=== PATIENT | female | born 1975 | race African-American/Black ===

== ENCOUNTER 2018-02-14 09:37 | Emergency (ER) | payer OTHER ==
--- NOTE | 2018-02-14 09:54 | ER Document Report ---
ED Medical Screen (RME) - General Chief Complaint: Shortness Of Breath Stated Complaint: SHORTNESS OF BREATH Time Seen by Provider: 02/14/18 09:46 Notes: RAPID MEDICAL EVALUATION DISCLOSURE I have seen this patient as part of a Rapid Medical Evaluation and, if applicable, placed any initially appropriate orders. The patient will be seen and fully evaluated, including a full history and physical exam, by a provider ( in Main ED or Fast Track) when a room becomes available. 42-year-old female here with complaints of progressively worsening fatigue and "feeling drained" over the past few weeks. She has also had shortness of breath cough and wheezing over a similar timeframe but her primary concern is feeling so tired. She is also been having some frequent headaches. She does not have any chest pain or abdominal pain. She does have a previous history of serum sodium and potassium derangements. EXAM Clear to auscultation bilaterally Regular rate and rhythm TRAVEL OUTSIDE OF THE [place] IN LAST 30 DAYS: No - Related Data Allergies/Adverse Reactions: iodine [Iodine] Allergy (Verified 08/08/17 20:18) Shellfish * [Shellfish] Allergy (Verified 08/08/17 20:18) Past Medical History - Social History Frequency of alcohol use: Occasional Drug Abuse: None Pulmonary Medical History: Reports: Hx Asthma Renal/ Medical History: Denies: Hx Peritoneal Dialysis - Immunizations Hx Diphtheria, Pertussis, Tetanus Vaccination: Yes Physical Exam - Vital signs Vitals: Temp Pulse Resp BP Pulse Ox 98.6 F 83 16 145/86 H 97 02/14/18 09:42 02/14/18 09:42 02/14/18 09:42 02/14/18 09:42 02/14/18 09:42 Course - Vital Signs Vital signs: Temp Pulse Resp BP Pulse Ox 98.6 F 83 16 145/86 H 97 02/14/18 09:42 02/14/18 09:42 02/14/18 09:42 02/14/18 09:42 02/14/18 09:42
--- NOTE | 2018-02-14 10:23 | RADIOLOGY REPORT (SQ) ---
EXAM DESCRIPTION: CHEST 2 VIEWS COMPLETED DATE/TIME: 02/14/2018 10:12 am REASON FOR STUDY: cough sob wheezing; eval pneumonia COMPARISON: January 2017. EXAM PARAMETERS: NUMBER OF VIEWS: two views TECHNIQUE: Digital Frontal and Lateral radiographic views of the chest acquired. RADIATION DOSE: NA LIMITATIONS: none FINDINGS: LUNGS AND PLEURA: No acute infiltrates or effusions. MEDIASTINUM AND HILAR STRUCTURES: No masses or contour abnormalities. HEART AND VASCULAR STRUCTURES: The heart and pulmonary vasculature are normal. BONES: No acute findings. HARDWARE: None in the chest. OTHER: No other significant finding. IMPRESSION: NO ACUTE DISEASE. TECHNICAL DOCUMENTATION: JOB ID: [id number] 2010 [employer]- All Rights Reserved Reading location - IP/workstation name: [email or web address]
[2018-02-14 10:28] LABS: ABSOLUTE EOSINOPHILS # (AUTO) 0.4 10^3/uL (0.0-0.6); ABSOLUTE LYMPHOCYTES (AUTO) 1.1 10^3/uL (0.5-4.7); ABSOLUTE MONOCYTES (AUTO) 0.4 10^3/uL (0.1-1.4); ABSOLUTE NEUT (AUTO) 2.1 10^3/uL (1.7-8.2); BASOPHILS % (AUTO) 0.5 % (0-2); EOSINOPHILS % (AUTO) 10.5 % (0-6); HEMATOCRIT 27.9 % (36.0-47.0); HEMOGLOBIN 8.5 g/dL (12.0-15.5); MEAN CORPUSCULAR HEMOGLOBIN 21.8 pg (27.0-33.4); MEAN CORPUSCULAR HGB CONC 30.4 g/dL (32.0-36.0); MEAN CORPUSCULAR VOLUME 72 fl (80-97); MONOCYTES % (AUTO) 9.9 % (3-13); PLATELET COUNT 242 10^3/uL (150-450); RED BLOOD COUNT 3.88 10^6/uL (3.72-5.28); RED CELL DISTRIBUTION WIDTH 17.8 % (11.5-14.0); SEGMENTED NEUTROPHILS % (AUTO) 51.1 % (42-78); TOTAL CELLS COUNTED % (AUTO) 100 %
[2018-02-14] MEDS ORDERED: PREDNISONE 20 MG TABLET PO ONE (10:33)
[2018-02-14] MEDS ORDERED: IPRATROPIUM/ALBUTEROL 0.5-2.5 MG/3 ML AMPUL NEB ONE (10:33)
--- NOTE | 2018-02-14 10:33 | ER Document Report ---
ED General - General Chief Complaint: Shortness Of Breath Stated Complaint: SHORTNESS OF BREATH Time Seen by Provider: 02/14/18 09:46 Notes: Patient is a 42-year-old female presents emergency room with a chief complaint of shortness of breath, dyspnea for the past 2 weeks. Patient states that she has a inhaler at home. She states that she has been getting winded during activities that normally would not bother her. She states that she uses her rescue inhaler with improvement for about 15 minutes and then has return of symptoms. She denies any productive cough, chest pain, fevers, chills, rigors, epigastric pain, heartburn. Patient does have a known history of asthma and GERD. Past surgical history denies Social history admits to former tobacco user, occasional alcohol, denies any drug use Family history significant for coronary disease, diabetes, hypertension, hyperlipidemia Allergies to iodine and shellfish Does not have primary care Patient does not meet any exclusion criteria for TPA at this time. I have reviewed the risks and benefits of administration of TPA with the family at the bedside. We have reviewed the risks of intracranial bleed and the possible benefits of increased functional independence at 90 days with the use of TPA. TRAVEL OUTSIDE OF THE [place] IN LAST 30 DAYS: No - Related Data Allergies/Adverse Reactions: iodine [Iodine] Allergy (Verified 08/08/17 20:18) Shellfish * [Shellfish] Allergy (Verified 08/08/17 20:18) Past Medical History - Social History Smoking Status: Former Smoker Frequency of alcohol use: Occasional Drug Abuse: None Family History: CAD, DM, Hyperlipidemia, Hypertension, Other Patient has suicidal ideation: No Patient has homicidal ideation: No Pulmonary Medical History: Reports: Hx Asthma Renal/ Medical History: Denies: Hx Peritoneal Dialysis - Immunizations Hx Diphtheria, Pertussis, Tetanus Vaccination: Yes Review of Systems - Review of Systems Constitutional: No symptoms reported Cardiovascular: See HPI Respiratory: See HPI Gastrointestinal: No symptoms reported Musculoskeletal: No symptoms reported Neurological/Psychological: No symptoms reported -: Yes All other systems reviewed and negative Physical Exam - Vital signs Vitals: Temp Pulse Resp BP Pulse Ox 98.6 F 83 16 145/86 H 97 02/14/18 09:42 02/14/18 09:42 02/14/18 09:42 02/14/18 09:42 02/14/18 09:42 - Notes Notes: PHYSICAL EXAM GENERAL: Alert, interacts well. Speaking in clear sentences, no tachypnea HEAD: Normocephalic, atraumatic. EYES: Pupils equal, round, and reactive to light. Extraocular movements intact. ENT: Oral mucosa moist, tongue midline. NECK: Full range of motion. Supple. Trachea midline. LUNGS: Diminished breath sounds throughout with wheezes, no rales, or rhonchi. No respiratory distress. HEART: Regular rate and rhythm. No murmurs, gallops, or rubs. EXTREMITIES: Moves all 4 extremities spontaneously. No edema, radial and dorsalis pedis pulses 2/4 bilaterally. No cyanosis. NEUROLOGICAL: Alert and oriented x4. Normal speech. PSYCH: Normal affect, normal mood. SKIN: Warm, dry, normal turgor. No rashes or lesions noted. Course - Re-evaluation Re-evalutation: 02/14/18 12:28 Patient presents with a mild exacerbation of their baseline asthma. Mild wheezing at time of presentation but vitals do not show significant hypoxemia or tachypnea. No retractions. Patient did clinically improve after receiving nebulizers here in the emergency department. Chest x-ray without evidence of an acute pneumonia. Patient able to ambulate without any respiratory distress. Based on patient's overall reassuring assessment, I believe they are stable for outpatient management with steroids. I do not suspect an acute alternative pathology at this time based on history and exam including acute pulmonary embolus, ACS, pneumothorax, or aortic dissection. At this time will discharge with return precautions and follow-up recommendations. Verbal discharge instructions given a the bedside and opportunity for questions given. Medication warnings reviewed. Patient is in agreement with this plan and has verbalized understanding of return precautions and the need for primary care follow-up in the next 24-72 hours. - Vital Signs Vital signs: Temp Pulse Resp BP Pulse Ox 98.6 F 83 16 145/86 H 97 02/14/18 09:42 02/14/18 09:42 02/14/18 09:42 02/14/18 09:42 02/14/18 09:42 - Laboratory Result Diagrams: 02/14/18 10:00 02/14/18 10:00 Laboratory results interpreted by me: 02/14/18 02/14/18 10:00 10:11 Hgb 8.5 L Hct 27.9 L MCV 72 L MCH 21.8 L MCHC 30.4 L RDW 17.8 H Eosinophils % 10.5 H Urine Blood MODERATE H Urine Urobilinogen 2.0 H Ur Leukocyte Esterase SMALL H - Diagnostic Test Radiology reviewed: Image reviewed, Reports reviewed - EKG Interpretation by Me EKG shows normal: Sinus rhythm Rate: Normal Rhythm: NSR When compared to previous EKG there are: No significant change Discharge - Discharge Clinical Impression: Asthma Qualifiers: Asthma severity: unspecified severity Asthma persistence: intermittent Asthma complication type: with acute exacerbation Qualified Code(s): J45.21 - Mild intermittent asthma with (acute) exacerbation Condition: Good Disposition: HOME, SELF-CARE Additional Instructions: You were seen for an asthma exacerbation. Your symptoms improved with treatment here in the emergency department. However, it is very important that you return to the emergency department immediately if you began to have worsening difficulty breathing that does not respond to your normal home breathing treatments. You are also being sent home on a five-day course of steroids that you should start taking tomorrow. Please also follow closely with your primary care physician. you should also return to emergency department if you develop fever greater than 101, persistent cough, persistent vomiting, pass out, or any other symptoms that are concerning to you. Prescriptions: Prednisone [Deltasone 20 mg Tablet] 3 tab PO DAILY 5 Days tablet Forms: Elevated Blood Pressure Referrals: RDED SARABIA MD [COMMUNITY BASED STAFF] - Follow up in 3-5 days
[2018-02-14 10:35] LABS: ANION GAP 9 (5-19); BLOOD UREA NITROGEN 12 mg/dL (7-20); CARBON DIOXIDE 28 mmol/L (22-30); CHLORIDE 105 mmol/L (98-107); GLUCOSE 90 mg/dL (75-110); PHOSPHORUS 3.5 mg/dL (2.5-4.5); POTASSIUM 3.9 mmol/L (3.6-5.0); SODIUM 141.8 mmol/L (137-145)
[2018-02-14] MEDS: ALBUTEROL SULFATE 0.083% NEB 2.5 MG/3 ML AMPUL NEB SCH ×2 (10:45→11:59)
[2018-02-14 11:02] LABS: APPEARANCE,URINE SLIGHTLY-CLOUDY; BILIRUBIN,URINE NEGATIVE (NEGATIVE); COLOR,URINE YELLOW; GLUCOSE, URINE NEGATIVE (NEGATIVE); KETONES,URINE NEGATIVE (NEGATIVE); LEUKOCYTE ESTERASE,URINE SMALL (NEGATIVE); NITRITE,URINE NEGATIVE (NEGATIVE); PROTEIN,URINE NEGATIVE (NEGATIVE)
[2018-02-14] MEDS ORDERED: ALBUTEROL SULFATE HFA (90 MCG/PUFF) 8 GM MDI (1 MDI/ER DISP) IH PRN (12:30)
[2018-02-14 12:39] VITALS: BP 158/89
== END 2018-02-14 12:39 | disposition home or self-care (01) ==
LOC: ER 09:37
DX: J45.21 Mild intermittent asthma with (acute) exacerbation (principal); K21.9 Gastro-esophageal reflux disease without esophagitis
CPT/HCPCS: 94640; 99285; 36415; 83735; 84100; 84443; 85025; 81025; 80048; 81001; 71046; J7512; J3490; J7620

== ENCOUNTER 2018-11-15 07:31 | Emergency (ER) | payer BC ==
[2018-11-15] MEDS ORDERED: ONDANSETRON HCL INJ/PF 4 MG/2 ML SDV IV ONE (08:32)
[2018-11-15] MEDS ORDERED: MORPHINE SULFATE 10 MG/ML INJ IV ONE (08:32)
[2018-11-15 08:34] LABS: ABSOLUTE EOSINOPHILS # (AUTO) 0.4 10^3/uL (0.0-0.6); ABSOLUTE LYMPHOCYTES (AUTO) 0.7 10^3/uL (0.5-4.7); ABSOLUTE MONOCYTES (AUTO) 0.4 10^3/uL (0.1-1.4); ABSOLUTE NEUT (AUTO) 3.1 10^3/uL (1.7-8.2); BASOPHILS % (AUTO) 1.1 % (0-2); EOSINOPHILS % (AUTO) 8.9 % (0-6); HEMATOCRIT 26.5 % (36.0-47.0); LYMPHOCYTES % (AUTO) 15.4 % (13-45); MEAN CORPUSCULAR HEMOGLOBIN 20.5 pg (27.0-33.4); MEAN CORPUSCULAR HGB CONC 30.2 g/dL (32.0-36.0); MEAN CORPUSCULAR VOLUME 68 fl (80-97); MONOCYTES % (AUTO) 7.9 % (3-13); PLATELET COUNT 285 10^3/uL (150-450); RED CELL DISTRIBUTION WIDTH 18.5 % (11.5-14.0); SEGMENTED NEUTROPHILS % (AUTO) 66.7 % (42-78); TOTAL CELLS COUNTED % (AUTO) 100 %; WHITE BLOOD COUNT 4.6 10^3/uL (4.0-10.5)
[2018-11-15 08:42] LABS: APPEARANCE,URINE CLEAR; BILIRUBIN,URINE NEGATIVE (NEGATIVE); COLOR,URINE YELLOW; GLUCOSE, URINE NEGATIVE (NEGATIVE); KETONES,URINE NEGATIVE (NEGATIVE); LEUKOCYTE ESTERASE,URINE TRACE (NEGATIVE); NITRITE,URINE NEGATIVE (NEGATIVE); PROTEIN,URINE NEGATIVE (NEGATIVE); URINE SPECIFIC GRAVITY 1.017; UROBILINOGEN,URINE NEGATIVE mg/dL (<2.0)
[2018-11-15 08:52] LABS: ALANINE AMINOTRANSFERASE 33 U/L (9-52); ALBUMIN 4.5 g/dL (3.5-5.0); ALKALINE PHOSPHATASE 90 U/L (38-126); ANION GAP 9 (5-19); ASPARTATE AMINO TRANSFERASE 55 U/L (14-36); BILIRUBIN,DIRECT 0.2 mg/dL (0.0-0.4); BILIRUBIN,TOTAL 0.4 mg/dL (0.2-1.3); BLOOD UREA NITROGEN 7 mg/dL (7-20); CARBON DIOXIDE 26 mmol/L (22-30); CHLORIDE 106 mmol/L (98-107); GLUCOSE 97 mg/dL (75-110); LIPASE 85.2 U/L (23-300); POTASSIUM 4.9 mmol/L (3.6-5.0); SODIUM 140.5 mmol/L (137-145); TOTAL PROTEIN 8.3 g/dL (6.3-8.2)
[2018-11-15 09:17] LABS: ANISOCYTOSIS 2+; HYPOCHROMASIA 2+; PLATELET COMMENT ADEQUATE; ROULEAUX 2+
[2018-11-15] MEDS ORDERED: NORMAL SALINE 1000 ML 1,000 ML IV ONE (11:15)
[2018-11-15] MEDS ORDERED: PROMETHAZINE HCL INJ 25 MG/1 ML VIAL IV ONE (11:49)
--- NOTE | 2018-11-15 12:15 | RADIOLOGY REPORT (SQ) ---
EXAM DESCRIPTION: CT ABD/PELVIS WITH IV ORAL COMPLETED DATE/TIME: 11/15/2018 11:51 am REASON FOR STUDY: RLQ pain COMPARISON: None. TECHNIQUE: CT scan of the abdomen and pelvis performed with intravenous and oral contrast using janae sebas scanning technique with dynamic intravenous contrast injection. Images reviewed with lung, soft t issue, and bone windows. Reconstructed coronal and sagittal MPR images reviewed. Delayed images for e valuation of the urinary system also acquired. All images stored on PACS. All CT scanners at this facility use dose modulation, iterative reconstruction, and/or weight based d osing when appropriate to reduce radiation dose to as low as reasonably achievable (ALARA). [facility]: Dose Right [facility]: CareDose [facility]: Dose Right [facility]: Teradose 4D [facility]: [employer] CONTRAST TYPE AND DOSE: contrast/concentration: Isovue 350.00 mg/ml; Total Contrast Delivered: 100.0 ml; Total Saline Delivered: 63.5 ml RENAL FUNCTION: GFR > 60. RADIATION DOSE: CT Rad equipment meets quality standard of care and radiation dose reduction techniq ues were employed. CTDIvol: 18.4 - 20.8 mGy. DLP: 2015 mGy-cm. . LIMITATIONS: None. FINDINGS: LOWER CHEST: No significant findings. No nodules or infiltrates. LIVER: Normal size. No masses. No dilated ducts. SPLEEN: Normal size. No focal lesions. PANCREAS: No masses. No significant calcifications. No adjacent inflammation or peripancreatic fluid collections. Pancreatic duct not dilated. GALLBLADDER: No identified stones by CT criteria. No inflammatory changes to suggest cholecystitis. ADRENAL GLANDS: No significant masses or asymmetry. RIGHT KIDNEY AND URETER: No solid masses. No significant calcifications. No hydronephrosis or hyd roureter. LEFT KIDNEY AND URETER: No solid masses. No significant calcifications. No hydronephrosis or hydr oureter. AORTA AND VESSELS: No aneurysm. No dissection. Renal arteries, SMA, celiac without stenosis. RETROPERITONEUM: No retroperitoneal adenopathy, hemorrhage or masses. BOWEL AND PERITONEAL CAVITY: No obstruction. No visualized masses. No free fluid. No inflammatory ch anges or thickening of bowel wall. APPENDIX: Normal. PELVIS: IUD in the uterus. No pelvic adenopathy. 2 cm cyst right ovary. No free fluid. ABDOMINAL WALL: No masses. No hernias. BONES: No significant or acute findings. OTHER: No other significant finding. IMPRESSION: 2 cm cyst right ovary. Normal appendix. TECHNICAL DOCUMENTATION: JOB ID: [id number] Quality ID # [id number]: Final reports with documentation of one or more dose reduction techniques (e.g., Au tomated exposure control, adjustment of the mA and/or kV according to patient size, use of iterative reconstruction technique) 2010 [employer]- All Rights Reserved Reading location - IP/workstation name: [email or web address]
--- NOTE | 2018-11-15 13:11 | ER Document Report ---
ED General - General Chief Complaint: Abdominal Pain Stated Complaint: ABDOMINAL PAIN Time Seen by Provider: 11/15/18 07:48 Primary Care Provider: MADHURI SILVA MD [ACTIVE STAFF] - Follow up as needed ESTHELA MERCADO MD [ACTIVE STAFF] - Follow up as needed Notes: Patient is a 43-year-old female presents to the emergency department for generalized left lower sharp abdominal pain that started last night. Patient states she has vomited twice since then is denying any blood in her vomit. Patient is denying any diarrhea or fever. Patient states she feels as though she has intermittent dysuria and urinary frequency. Patient's denying any vaginal discharge. Patient states her last menstrual period was 2 weeks ago and there is no chance that she is currently . Past medical history: Asthma, sleep apnea Medications: Albuterol Allergies: Iodine, shellfish Surgical history: None TRAVEL OUTSIDE OF THE [place] IN LAST 30 DAYS: No - Related Data Allergies/Adverse Reactions: iodine [Iodine] Allergy (Verified 08/08/17 20:18) Shellfish * [Shellfish] Allergy (Verified 08/08/17 20:18) Past Medical History - General Information source: Patient - Social History Smoking Status: Former Smoker Chew tobacco use (# tins/day): No Frequency of alcohol use: None Drug Abuse: None Family History: CAD, DM, Hyperlipidemia, Hypertension, Other Patient has suicidal ideation: No Patient has homicidal ideation: No Pulmonary Medical History: Reports: Hx Asthma Renal/ Medical History: Denies: Hx Peritoneal Dialysis - Immunizations Hx Diphtheria, Pertussis, Tetanus Vaccination: Yes Review of Systems - Review of Systems Constitutional: See HPI EENT: No symptoms reported Cardiovascular: No symptoms reported Respiratory: No symptoms reported Gastrointestinal: See HPI Genitourinary: See HPI Female Genitourinary: See HPI Musculoskeletal: No symptoms reported Skin: No symptoms reported Hematologic/Lymphatic: No symptoms reported Neurological/Psychological: No symptoms reported Physical Exam - Vital signs Vitals: Temp Pulse Resp BP Pulse Ox 98.0 F 81 18 173/93 H 100 11/15/18 07:37 11/15/18 07:37 11/15/18 07:37 11/15/18 07:37 11/15/18 07:37 - Notes Notes: GENERAL: Alert, interacts well. No acute distress. HEAD: Normocephalic, atraumatic. EYES: Pupils equal, round, and reactive to light. Extraocular movements intact. ENT: Oral mucosa moist, tongue midline. NECK: Full range of motion. Supple. Trachea midline. LUNGS: Clear to auscultation bilaterally, no wheezes, rales, or rhonchi. No respiratory distress. HEART: Regular rate and rhythm. No murmur ABDOMEN: Soft, Non-distended. Bowel sounds present in all 4 quadrants. No Yeager sign noted, generalized McBurney's point tenderness noted. EXTREMITIES: Moves all 4 extremities spontaneously. No edema, normal radial and dorsalis pedis pulses bilaterally. No cyanosis. BACK: no cervical, thoracic, lumbar midline tenderness. No saddle anesthesia, normal distal neurovascular exam. No CVA tenderness noted bilaterally NEUROLOGICAL: Alert and oriented x3. Normal speech. cranial nerves II through XII grossly intact. PSYCH: Normal affect, normal mood. SKIN: Warm, dry, normal turgor. No rashes or lesions noted. Course - Re-evaluation Re-evalutation: 11/15/18 18:59 Patient's labs show no signs of leukocytosis, patient's hemoglobin and hematocrit are 8 and 26.5 respectively. Her MCV is 68 consistent with a microcytic anemia. In reviewing past patient labs it appears that she has had a decrease in her hemoglobin all the way back to 2011. Patient's labs show no signs of electrolyte abnormalities and no signs of urinary tract infection. Patient's abdomen and pelvis CT did reveal a 2 cm right ovarian cyst although her appendix does appear normal. Discussed CT results with patient at bedside. Discussed her anemia of 8 and potential iron deficiency anemia with her at bedside. Patient's denying any trouble breathing, weakness, dizziness, lightheadedness, general fatigue. Discussed that she needs to closely follow-up with her primary care provider to have these labs rechecked and to take an iron supplement at home. Patient states she recently just got insurance back and has follow-up with primary care provider for her hypertension. Patient states she will follow-up with primary care provider for iron supplements. Patient has had no further episodes of vomiting in the emergency department. Patient is stable for discharge. - Vital Signs Vital signs: Temp Pulse Resp BP Pulse Ox 98.2 F 81 11 L 170/95 H 100 11/15/18 13:23 11/15/18 07:37 11/15/18 13:22 11/15/18 13:23 11/15/18 13:02 - Laboratory Result Diagrams: 11/15/18 08:00 11/15/18 08:00 Laboratory results interpreted by me: 11/15/18 11/15/18 11/15/18 08:00 08:00 08:00 Hgb 8.0 L Hct 26.5 L MCV 68 L MCH 20.5 L MCHC 30.2 L RDW 18.5 H Eosinophils % 8.9 H AST 55 H Total Protein 8.3 H Ur Leukocyte Esterase TRACE H Urine Ascorbic Acid 20 H Discharge - Discharge Clinical Impression: Right ovarian cyst Anemia Qualifiers: Anemia type: unspecified type Qualified Code(s): D64.9 - Anemia, unspecified Vomiting Qualifiers: Vomiting type: unspecified Vomiting Intractability: non-intractable Nausea presence: with nausea Qualified Code(s): R11.2 - Nausea with vomiting, unsp ecified Condition: Stable Disposition: HOME, SELF-CARE Instructions: Anemia ([facility]), Ovarian Cyst ([facility]), Vomiting ([facility]) Additional Instructions: As we discussed you have been seen and treated in the emergency department for a right ovarian cyst, vomiting and your generalized anemia. Your anemia is likely due to iron deficiency but you should continue with testing at your primary care provider. Please immediately return to the emergency room should you feel lightheaded, weak, short of breath or have any other concerning symptoms. Please take nausea medication as prescribed. Please follow-up with your primary care provider and DELIMER within the next 24-48 hours. Prescriptions: Ondansetron [Zofran Odt 4 mg Tablet] 1 - 2 tab PO Q4H PRN #15 tab.rapdis PRN Reason: For Nausea/Vomiting Referrals: MADHURI SILVA MD [ACTIVE STAFF] - Follow up as needed ESTHELA MERCADO MD [ACTIVE STAFF] - Follow up as needed
[2018-11-15 13:29] VITALS: BP 170/95
== END 2018-11-15 13:29 | disposition home or self-care (01) ==
LOC: ER 07:31
DX: N83.201 Unspecified ovarian cyst, right side (principal); D64.9 Anemia, unspecified; R11.2 Nausea with vomiting, unspecified; R10.9 Unspecified abdominal pain; R10.32 Left lower quadrant pain; R30.0 Dysuria; R35.0 Frequency of micturition; J45.909 Unspecified asthma, uncomplicated; Z87.891 Personal history of nicotine dependence
CPT/HCPCS: 99284; 96361; 96374; 96375; 36415; 83690; 85025; 81025; 80053; 81001; 74177; J2270; J2550; J2405; J7030

== ENCOUNTER 2019-05-29 01:14 | Emergency (ER) | payer BC, OTHER ==
[2019-05-29] MEDS ORDERED: IPRATROPIUM/ALBUTEROL 0.5-2.5 MG/3 ML AMPUL NEB ONE (01:26)
[2019-05-29] MEDS ORDERED: METHYLPREDNISOLONE INJ 125 MG/2 ML SDV IV ONE (01:32)
--- NOTE | 2019-05-29 01:42 | ER Document Report ---
ED General - General Chief Complaint: Breathing Difficulty Stated Complaint: TROUBLE BREATHING Time Seen by Provider: 05/29/19 01:39 TRAVEL OUTSIDE OF THE [place] IN LAST 30 DAYS: No - HPI Notes: Patient is a 43-year-old female that presents to the emergency department for chief complaint of asthma exacerbation. Patient reports having to use her albuterol inhaler daily for the last few days. She does not use a spacer. She states she woke up from sleep coughing and feeling very short of breath about an hour ago. She does report pain diffusely across her chest when she is coughing but denies any chest pain when she is not coughing. She denies recent illness fevers and chills. She was not coughing prior to going to bed. Patient states she was admitted in high school for asthma but denies history of intubation or subsequent admissions to the hospital. She is not currently on daily steroids. She states this does feel like previous asthma attack she has had in the past. Patient took about 4 to 6 puffs of her albuterol inhaler prior to coming to the emergency room. Past Medical History: Asthma, hypertension Past Surgical History: Negative Social History: Denies tobacco or drug use. Reports occasional alcohol use. Family History: Reviewed and noncontributory for presenting illness Allergies: Reviewed, see documented allergy list. REVIEW OF SYSTEMS: CONSTITUTIONAL : No fever No chills No diaphoresis No recent illness EENT: No vision changes No congestion No sore throat CARDIOVASCULAR: chest pain No palpitations RESPIRATORY: shortness of breath cough difficulty breathing GASTROINTESTINAL: No abdominal pain No nausea No vomiting No diarrhea GENITOURINARY: No dysuria No hematuria No difficulty urinating MUSCULOSKELETAL: No back pain No leg pain No arm pain SKIN: No rashes No lesions LYMPHATIC: No swollen, enlarged glands. NEUROLOGICAL: No lightheadedness No headache No weakness No paresthesias PSYCHIATRIC: No anxiety No depression PHYSICAL EXAMINATION: Vital signs reviewed, nursing noted reviewed. GENERAL: Well-appearing, well-nourished and in mild acute distress. HEAD: Atraumatic, normocephalic. EYES: Eyes appear normal, extraocular movements intact, sclera anicteric, conjunctiva are normal. ENT: nares patent, oropharynx clear without exudates. Moist mucous membranes. NECK: Normal range of motion, supple without lymphadenopathy LUNGS: Breath sounds diminished with expiratory wheezing to auscultation bilaterally and equal. Tachypneic with mild accessory muscle use. Speaking in partial sentences. HEART: Tachycardic rate and regular rhythm without murmurs ABDOMEN: Soft, nontender, normoactive bowel sounds. No rebound, guarding, or rigidity. No masses appreciated. EXTREMITIES: Nontender, good range of motion, no pitting or edema. NEUROLOGICAL: No focal neurological deficits. Moves all extremities spontaneously Motor and sensory grossly intact on exam. PSYCH: Normal mood, normal affect. SKIN: Warm, Dry, normal turgor, no rashes or lesions noted on exposed skin - Related Data Allergies/Adverse Reactions: iodine [Iodine] Allergy (Verified 08/08/17 20:18) Shellfish * [Shellfish] Allergy (Verified 08/08/17 20:18) Past Medical History - Social History Smoking Status: Never Smoker Family History: CAD, DM, Hyperlipidemia, Hypertension, Other Pulmonary Medical History: Reports: Hx Asthma Renal/ Medical History: Denies: Hx Peritoneal Dialysis - Immunizations Hx Diphtheria, Pertussis, Tetanus Vaccination: Yes Physical Exam - Vital signs Vitals: Temp Pulse Resp BP Pulse Ox 98 F 88 28 H 168/97 H 96 05/29/19 01:18 05/29/19 01:18 05/29/19 01:18 05/29/19 01:18 05/29/19 01:18 Course - Re-evaluation Re-evalutation: 05/29/19 01:41 Vitals reviewed. Nursing notes reviewed. Patient is tachycardic, tachypneic and speaking partial sentences. She does have audible wheezing on exam. She was given DuoNeb, albuterol, and Solu-Medrol for her asthma exacerbation. Patient placed on telemetry monitoring. 05/29/19 02:54 Patient reevaluated and has complete resolution of her tachypnea and wheezing. Lung sounds are now clear to auscultation bilaterally. She is oxygenating at 100% on room air and is in no acute respiratory distress. Patient's chest x-ray is negative for acute cardiopulmonary process. Her symptoms are consistent with asthma exacerbation. Patient had been given a dose of Solu-Medrol in the emergency room and will be started on a short course of prednisone at home given the severity of her initial presentation. She will continue using her albuterol inhaler. She will also be written for a spacer to make her inhaler more effective. Patient will follow with her primary care doctor for reevaluation in the next few days. She will return for new or worsening sympt oms. Chest X-Ray 05/29/19 01:32 IMPRESSION: No evidence of acute intrathoracic disease. - Vital Signs Vital signs: Temp Pulse Resp BP Pulse Ox 98 F 88 28 H 168/97 H 96 05/29/19 01:18 05/29/19 01:18 05/29/19 01:18 05/29/19 01:18 05/29/19 01:18 Discharge - Discharge Clinical Impression: Asthma exacerbation Qualifiers: Asthma severity: mild Asthma persistence: intermittent Qualified Code(s): J45.21 - Mild intermittent asthma with (acute) exacerbation Condition: Stable Disposition: HOME, SELF-CARE Instructions: Asthma ([facility]) Additional Instructions: Please return to the emergency department if you have any worsening, or concern of your symptoms. Please return to the emergency department if you develop chest pain, difficulty breathing, severe abdominal pain, or ongoing vomiting. Please follow-up with your primary care physician in 2-3 days and any other recommended physicians. If prescribed, take all medications as directed. If you have any questions or concerns do not hesitate to return the emergency department for evaluation. Use your albuterol inhaler with the spacer, this makes the medication more effective. He is 2 puffs on your albuterol inhaler every 4 hours as needed for shortness of breath, if you are requiring more than 2 puffs every 4 hours she should return to the emergency room Prescriptions: Prednisone [Deltasone 20 mg Tablet] 2 tab PO DAILY 4 Days tablet Inhaler, Assist Devices [Space Chamber Plus] 1 each MC ONCE PRN 1 Days spacer PRN Reason: Referrals: ARDHIKA OHARA MD [Primary Care Provider] - Follow up in 3-5 days
[2019-05-29] MEDS: ALBUTEROL SULFATE 0.083% NEB 2.5 MG/3 ML AMPUL NEB SCH ×2 (01:45→02:00)
--- NOTE | 2019-05-29 02:20 | RADIOLOGY REPORT (SQ) ---
EXAM DESCRIPTION: X-ray single view chest. CLINICAL HISTORY: 43 years Female, SOB COMPARISON: 02/14/2018 TECHNIQUE: Single portable x-ray view of the chest performed on 05/29/2019 at 2:04 AM FINDINGS: The lungs are well expanded and are clear. There is no evidence of a pneumothorax. The cardiac silhouette is normal in size and configuration. The mediastinal contours are normal. No acute osseous abnormality is identified. No focal soft tissue abnormalities are seen. Lines and tubes: None. IMPRESSION: No evidence of acute intrathoracic disease.
[2019-05-29 03:09] VITALS: BP 134/80
== END 2019-05-29 03:17 | disposition home or self-care (01) ==
LOC: ER 01:14
DX: J45.21 Mild intermittent asthma with (acute) exacerbation (principal)
CPT/HCPCS: 94640; 99284; 96374; 71045; J2930; J7620

== ENCOUNTER 2019-10-09 07:16 | Emergency (ER) | payer BC, OTHER ==
[2019-10-09] MEDS ORDERED: CEPHALEXIN 500 MG CAPSULE PO ONE (10:30)
--- NOTE | 2019-10-09 10:30 | ER Document Report ---
HPI - HPI Time Seen by Provider: 10/09/19 10:04 Pain Level: 0 Context: Patient is a 44-year-old female who presents emergency department with a chief complaint of right great toe pain that started this morning at 4:00 in the morning and radiated up to her right leg. She denies any injury. She does have redness to the area. Patient states that she normally puts lotion on her skin, but her skin is dry and cracked. Has a history of asthma. Denies any other medical problems. Denies diabetes. - ROS Systems Reviewed and Negative: Yes All other systems reviewed and negative - CONSTITUTIONAL Constitutional: DENIES: Fever, Chills - EENT EENT: DENIES: Sore Throat, Ear Pain - REPRODUCTIVE Reproductive: DENIES: : - MUSCULOSKELETAL Musculoskeletal: REPORTS: Extremity pain - intermittent - DERM Skin Color: Normal Skin Problems: None Past Medical History - Social History Smoking Status: Unknown if Ever Smoked Chew tobacco use (# tins/day): No Frequency of alcohol use: Heavy Drug Abuse: None Family History: CAD, DM, Hyperlipidemia, Hypertension, Other Patient has suicidal ideation: No Patient has homicidal ideation: No - Past Medical History Cardiac Medical History: Reports: Hx Hypertension Pulmonary Medical History: Reports: Hx Asthma Renal/ Medical History: Denies: Hx Peritoneal Dialysis - Immunizations Hx Diphtheria, Pertussis, Tetanus Vaccination: Yes Vertical Provider Document - CONSTITUTIONAL Agree With Documented VS: Yes Exam Limitations: No Limitations General Appearance: No Apparent Distress - INFECTION CONTROL TRAVEL OUTSIDE OF THE [place] IN LAST 30 DAYS: No - HEENT HEENT: Atraumatic, Normocephalic - NECK Neck: Normal Inspection - RESPIRATORY Respiratory: No Respiratory Distress - CARDIOVASCULAR Cardiovascular: Regular Rhythm Pulses: Normal: Radial - MUSCULOSKELETAL/EXTREMETIES Musculoskeletal/Extremeties: FROM, Tender - Right great toe - NEURO Level of Consciousness: Awake, Alert, Appropriate Motor/Sensory: No Motor Deficit, No Sensory Deficit - DERM Integumentary: Warm, Dry, Rash - Erythema noted to right great toe Course - Re-evaluation Re-evalutation: 10/09/19 10:27 Patient presents with symptoms most consistent with an acute cellulitis. Vitals within normal limits. Patient does not meet sepsis criteria is overall very well in appearance. Exam and history are not consistent with DVT. At this time will discharge with return precautions and follow-up recommendations. Verbal discharge instructions given a the bedside and opportunity for questions given. Medication warnings reviewed. Patient is in agreement with this plan and has verbalized understanding of return precautions and the need for primary care follow-up in the next 24-72 hours. - Vital Signs Vital signs: Temp Pulse Resp BP Pulse Ox 97.7 F 81 16 168/89 H 99 10/09/19 07:23 10/09/19 07:23 10/09/19 07:23 10/09/19 07:23 10/09/19 07:23 Discharge - Discharge Clinical Impression: Cellulitis Qualifiers: Site of cellulitis: extremity Site of cellulitis of extremity: lower extremity Laterality: right Qualified Code(s): L03.115 - Cellulitis of right lower limb Condition: Stable Disposition: HOME, SELF-CARE Additional Instructions: The rash is likely due to infection of your skin. You need to take the antibiotics as prescribed. Do not stop even if the rash goes away until you have completed all the antibiotics. You need to return to emergency department if the redness spreads. You should also return if you develop fevers with temperature greater than 101, persistent vomiting, worsening pain, or have any other symptoms that are concerning to you. Prescriptions: Cephalexin Monohydrate [Keflex 500 mg Capsule] 500 mg PO Q6H 7 Days #28 capsule Forms: Return to Work Referrals: RADHIKA OHARA MD [Primary Care Provider] - Follow up in 1 week
[2019-10-09 12:38] VITALS: BP 170/103
== END 2019-10-09 11:08 | disposition home or self-care (01) ==
LOC: ER 07:16
DX: L03.115 Cellulitis of right lower limb (principal); M79.674 Pain in right toe(s); I10 Essential (primary) hypertension
CPT/HCPCS: 99283

== ENCOUNTER → 2020-07-04 | Day surgery (SDC) | payer BC ==
[~2020-07-04] MED LIST: LIDOCAINE 1% INJ-PF (10 MG/ML) 30 ML SDV ONE
--- NOTE | 2020-07-12 09:57 | WOMENS IMAGING REPORT ---
EXAM DESCRIPTION: U/S BREAST BX; RIGHT DIG DX MAMMO NO CHG IMAGES COMPLETED DATE/TIME: 07/04/2020 2:14 pm; 07/04/2020 2:05 pm REASON FOR STUDY: N60.09 SOLITARY CYST OF UNSPECIFIED BREAST; RT BREAST POST BIOPSY R92.0 N60.09 SO LITARY CYST OF UNSPECIFIED BREAST COMPARISON: None. TECHNIQUE: The procedure was discussed with the patient and the patient agreed to proceed. The patient was scanned and the area of interest in the 10 o'clock position 10 cm from the nipple of the right breast was localized. This correlates with the area of concern on prior imaging studies. T his area was targeted for ultrasound-guided core biopsy. After sterile skin prep and 2.5 mL local lidocaine 1 % skin and deep tissue anesthesia, a 14 gauge co re biopsy needle was used to obtain several cores of tissue from the lesion. Under ultrasound guidan ce, a Ribbon clip was placed in the areas sampled. There were no immediate post-procedure complicati ons. MAMMOGRAM: Post-procedure two view mammogram was acquired in the digital mammogram suite. The clip wa s in the expected location. No significant hematoma. Pathology yields a diagnosis of invasive ductal carcinoma. Pathology is concordant. LIMITATIONS: None. FINDINGS: Ultrasound guided breast biopsy as described above. POST PROCEDURE MAMMOGRAMS FOR MARKER PLACEMENT: Yes IMPRESSION: ULTRASOUND-GUIDED CORE BIOPSY OF THE RIGHT BREAST YIELDS A DIAGNOSIS OF INVASIVE DUCTAL CARCINOMA. COMMENT: COMMUNICATION: The patient's provider has been notified of the findings. The provider will discuss the findings with the patient. Patient medication list reviewed: Yes- Quality ID# [id number]:Eligible professional attests to documenting i n the medical record they obtained, updated, or reviewed the patient's current medications. TECHNICAL DOCUMENTATION: JOB ID: [id number] 2010 [employer]- All Rights Reserved Reading location - IP/workstation name: [email or web address]
== END ==
LOC: RAD 13:00
PROVIDERS: ATTEND Family Medicine
DX: C50.411 Malignant neoplasm of upper-outer quadrant of right female breast (principal); R92.0 Mammographic microcalcification found on diagnostic imaging of breast; N60.01 Solitary cyst of right breast
CPT/HCPCS: 88342 ×2; 88341 ×2; 88305 ×2; 19083; J3490